=== PATIENT | male | born 1995 | race Caucasian/White ===

== ENCOUNTER 2020-12-23 23:10 | Emergency (ER) | payer OTHER ==
[~2020-12-23] VITALS: Ht 188 cm; Wt 122.5 kg
[2020-12-23 23:25] VITALS: BP 140/95
--- NOTE | 2020-12-23 23:28 | NUR ---
25 Y/O FEMALE PATIENT PRESENTS TO ED WITH CHEST PAIN . PT STATES "I SMOKED COCAINE YESTERDAY AND SUDDENLY I FELT LIKE THIS." . DENIES N/V/D; SKIN IS PINK/WARM/DRY; AAOX4 WITH EVEN AND STEADY GAIT; LUNGS CLEAR BL; HR EVEN AND REGULAR; PT DENIES ANY FEVER, CP, SOB, OR COUGH AT THIS TIME; PATIENT STATES PAIN OF 5/10 AT THIS TIME; VSS; PATIENT POSITIONED FOR COMFORT; HOB ELEVATED; BEDRAILS UP X2; BED DOWN. ER MD MADE AWARE OF PT STATUS. NKA PMH: DENIES
--- NOTE | 2020-12-23 23:28 | NUR ---
TO LOBBY A/W BED AMBULATORY
[2020-12-24] MEDS ORDERED: LORazepam 1 MG TAB PO ONE (00:15)
[2020-12-24 00:37] LABS: BASOPHILS # (AUTO) 0.1 K/uL (0.00-0.22); BASOPHILS % (AUTO) 0.6 % (0.0-2.0); EOSINOPHILS # (AUTO) 0.1 K/uL (0-0.4); EOSINOPHILS % (AUTO) 0.6 % (0.0-4.0); HEMATOCRIT 43.9 % (36-52); HEMOGLOBIN 14.8 g/dL (12.0-18.0); LYMPHOCYTES % (AUTO) 18.3 % (20.5-51.1); MEAN CORPUSCULAR HEMOGLOBIN 29 pg (27-31); MEAN CORPUSCULAR HGB CONC 34 g/dL (33-37); MEAN CORPUSCULAR VOLUME 85.9 fL (80-94); MONOCYTES % (AUTO) 8.7 % (1.7-9.3); NEUTROPHILS # (AUTO) 7.9 K/uL (1.8-7.7); NEUTROPHILS % (AUTO) 71.8 % (42.2-75.2); PLATELET COUNT (AUTO) 255 K/uL (140-450); RED BLOOD CELL COUNT(AUTO) 5.11 MIL/uL (4.20-6.10); RED CELL DISTRIBUTION WIDTH 13.3 % (11.6-13.7)
[2020-12-24 00:53] LABS: ALBUMIN 4.4 g/dL (3.4-5.0); ANION GAP 11.6 (8-16); CARBON DIOXIDE 28.7 mmol/L (21-32); POTASSIUM 3.3 mmol/L (3.5-5.1); TOTAL BILIRUBIN 0.5 mg/dL (0.0-1.0)
--- NOTE | 2020-12-24 02:07 | NUR ---
Patient discharged with v/s stable. Written and verbal after care instructions given and explained. Patient verbalized understanding. Ambulatory with steady gait. All questions addressed prior to discharge. Advised to follow up with PMD.
[2020-12-24 02:08] VITALS: BP 121/85
== END 2020-12-24 02:07 | disposition home or self-care (01) ==
LOC: MED 23:10
DX: F14.129 Cocaine abuse with intoxication, unspecified (principal); R07.9 Chest pain, unspecified; F12.90 Cannabis use, unspecified, uncomplicated
CPT/HCPCS: 36415; 71045; 80053; 84484; 85025; 93005; 99284